=== PATIENT | male | born 1980 | race American Indian/Alaskan Native ===

== ENCOUNTER 2023-10-30 08:51 | Observation (INO) | payer OTHER ==
[~2023-10-30] VITALS: Ht 177.8 cm; Wt 92.0 kg
[2023-10-30] VITALS (9 sets, daily range): BP systolic 133–201; BP diastolic 82–126
[~2023-10-30 08:51] MED LIST: IBUPROFEN600 MG PO
[2023-10-30 09:23] LABS: BASOPHILS 0.5 % (0-2); EOSINOPHILS 0.8 % (0-6); HEMATOCRIT 43.9 % (35.0-50.0); HEMOGLOBIN 14.5 g/dL (12.0-18.0); LYMPHOCYTES 15.4 % (24-44); MCH 26.4 (27-36); MCHC 33.1 g/dl (30-36); MCV 79.6 fl (81-99); MONOCYTES 7.4 % (0-12); NEUTROPHILS 75.9 % (39-80); PLATELET COUNT 263 K/uL (140-440); RBC 5.52 M/ul (4.3-5.7); RDW 14.3 (10.5-15.0)
[2023-10-30] MEDS ORDERED: LISINOPRIL5 MG PO (09:42)
[2023-10-30] MEDS ORDERED: OMEPRAZOLE20 MG PO (09:43)
[2023-10-30] MEDS ORDERED: HYDROCHLOROTH12.5 M1 PO (09:43)
[2023-10-30 09:50] LABS: ALBUMIN 3.5 g/dL (3.4-5.0); ALBUMIN/GLOBULIN RATIO 0.88 (1.1-2.4); ANION GAP 13.5 (7-21); BILIRUBIN, TOTAL 0.5 ng/dL (0.2-1.0); BUN/CREATININE RATIO 11.21 (6.0-28.6); CALCIUM 8.3 mg/dL (8.5-10.1); CREATININE, SERUM 1.07 mg/dL (0.70-1.30); MAGNESIUM 2.2 mg/dL (1.8-2.4); POTASSIUM 3.5 mmol/L (3.5-5.1); PROTEIN, TOTAL 7.5 g/dL (6.4-8.2)
[2023-10-30] MEDS ORDERED: hydrALAZINE HCL 20 MG/ML VIAL IV ONE (10:00)
[2023-10-30] MEDS ORDERED: CLOPIDOGREL BISULFATE 75 MG TAB PO ONE (10:30)
[2023-10-30] MEDS ORDERED: ASPIRIN 81 MG CHEW PO ONE (10:30)
[2023-10-30] MEDS ORDERED: PHARMACY RENAL DOSE ADJUSTMENT 1 DOSE MISC PO SCH (12:00)
[2023-10-30] MEDS ORDERED: ondansetron HCL 4 MG/2 ML VIAL IV PRN (12:00)
[2023-10-30] MEDS ORDERED: ACETAMINOPHEN 325 MG TAB PO PRN (12:00)
--- NOTE | 2023-10-30 13:03 | NUR ---
PT ARRIVES TO UNIT, VS OBTAINED, NOTED BP ON RUE 196/111, MAP 131, PULSE 67. BP RE-TAKEN ON LUE: 201/120, MAP 141, PULSE 57. PT DENIES CHEST PAIN, DIZINESS, OR FAINTNESS. DR. LEVIN NOTIFIED.
--- NOTE | 2023-10-30 14:00 | NUR ---
VISITED DURING SPIRITUAL CARE ROUNDS. PT EXHIBITED STRONG RESIELENCY RESOURCES; DENIED IMMEDIATE NEEDS. I PROVIDED SUPPORTIVE PRESENCE, LISTENED EMPATHETICALLY, PROVIDED PRAYER. PT AND COMPANIONS EXPRESSED GRATITUDE.
--- NOTE | 2023-10-30 14:17 | NUR ---
PT IN ROOM, ECHOCARDIOGRAM PROCEDURE IN PROGRESS.
--- NOTE | 2023-10-30 15:13 | NUR ---
PT LEAVES UNIT WITH HOT PACKER TO IMAGING DEPARTMENT VIA WHEELCHAIR.
[2023-10-30] MEDS ORDERED: ADVIL200 MG PO (17:27)
--- NOTE | 2023-10-30 17:28 | NUR ---
medications reconciled
[2023-10-30] MEDS ORDERED: LABETALOL HCL 20 MG/4 ML VIAL IV ONE (17:30)
--- NOTE | 2023-10-30 19:45 | NUR ---
bp 191/[address] santos notified verbally. Goal is to reduce BP by 25%, SBP 180's - 210/220, call if above
[2023-10-30] MEDS ORDERED: PANTOPRAZOLE SODIUM 40 MG TABEC PO ONE (20:15)
--- NOTE | 2023-10-30 20:15 | NUR ---
pt ambulating in room, alert and oriented x4, neuro wnl, strong hand plan rep. no c/o CP, residual R sided ataxia LE, none noted in arms. Cooperative with vitals and assessments. clear lungs, tele#[address], SVR, no sob with exertion, aware of VS every 2 hours and neuro every 4H. SL RFA patent. c/o upset stomach, scheduled Protonix given.
[2023-10-30] MEDS ORDERED: MELATONIN 3 MG TAB PO PRN (21:00)
--- NOTE | 2023-10-30 21:24 | NUR ---
sitting up in bed visiting with family. bp 180/122, denies c/o CP or SOB with exertion. voided light tea colored urine. tele#[address] SB to SVR
[2023-10-30] MEDS ORDERED: LABETALOL HCL 100 MG/20 ML MDV IV PRN (21:45)
--- NOTE | 2023-10-30 22:02 | NUR ---
dr santos called this rn about 10-15 minutes ago r/t pts bp and new med orders. bp rechecked at this time again 193/122. pt was ambulating in room, visiting with family, denies c/o htn s/sx. medicated with labelatol 10mg iv. med education of s/sx to observe for given verbally to pt, stated understanding
--- NOTE | 2023-10-30 23:14 | EKG ---
[facility] [address] [place] [address] Signed Sinus bradycardia with sinus arrhythmia Otherwise normal ECG No previous ECGs available Confirmed by Flaquita Levin MD () on 10/30/2023 11:14:49 PM Electronically Signed By: FLAQUITA LEVIN MD 10/30/23 2314 PATIENT NAME: AN COKER Electrocardiogram DATE OF : 78 PHYSICIAN: FLAQUITA LEVIN MD REPORT #: [id number] REPORT IS CONFIDENTIAL AND NOT TO BE RELEASED WITHOUT AUTHORIZATION
--- NOTE | 2023-10-30 23:20 | NUR ---
AWAKENS EASILY, C/O IMPROVING NUMBNESS R SIDED, NO C/O S/SX HIGH/LOW BP. BP 133/82, TELE#[address] SVR, DENIES CP. IN BED, TURNS AND REPOSITIONS SELF. NEURO CHECKS DONE STRONG APPLICATIONS SYSTEM ANALYST ALL EXTREMITIES, CLEAR SPEECH, MOVES ALL EXTREMITIES WELL.
[2023-10-31] VITALS (10 sets, daily range): BP systolic 128–172; BP diastolic 78–113
--- NOTE | 2023-10-31 01:21 | NUR ---
DR LEVIN NOTIFIED OF BP READINGS AFTER LABELATOL, NEW ORDER FOR NS IVF AT 125 TO KEEP PERFUSION UP HIS BPS ARE TRENDING DOWN
[2023-10-31] MEDS ORDERED: SODIUM CHLORIDE 0.9% 1,000 ML IV SCH (01:30)
--- NOTE | 2023-10-31 01:31 | NUR ---
ivf ns 125 started at this ti8me as per new orders. IVF med teaching done, stated understanding, sangita CP or SOB
[2023-10-31 05:47] LABS: BASOPHILS 0.6 % (0-2); EOSINOPHILS 1.6 % (0-6); HEMATOCRIT 41.6 % (35.0-50.0); HEMOGLOBIN 13.8 g/dL (12.0-18.0); LYMPHOCYTES 25.1 % (24-44); MCH 26.6 (27-36); MCHC 33.2 g/dl (30-36); MCV 80.1 fl (81-99); MONOCYTES 9.2 % (0-12); NEUTROPHILS 63.5 % (39-80); PLATELET COUNT 216 K/uL (140-440); RDW 14.3 (10.5-15.0)
--- NOTE | 2023-10-31 05:57 | NUR ---
AWAKENS EASILY, STAED RESOLVING NUMBNESS AND TINGLING R FACIAL TO HANDS, LIGHT NUMBNESS R LE BUT MUCH IMPROVED, ABLE TO TOUCH NOSE W FINGER W/O PROBLEMS. CLEAR SPEECH. IVF INFUSING. TELE#[address], SBRADY TO SR RO SVR TO SV EHSAN, IRREGULAR RATE. TURNS AND REPOSITIONS SLEF, TEACHING R/T HTN AND MEDS GIVEN, STATED UNDERSTANDING. CONTINUE WITH VITALS Q2, NEURO CHECKS EVERY 4H
[2023-10-31 06:02] LABS: ALBUMIN 3.3 g/dL (3.4-5.0); ANION GAP 10.3 (7-21); BUN/CREATININE RATIO 12.5 (6.0-28.6); CALCIUM 8.1 mg/dL (8.5-10.1); CHOLESTEROL/HDL RATIO 5.1; CREATININE, SERUM 1.04 mg/dL (0.70-1.30); MAGNESIUM 2.1 mg/dL (1.8-2.4); POTASSIUM 3.3 mmol/L (3.5-5.1); PROTEIN, TOTAL 6.6 g/dL (6.4-8.2)
--- NOTE | 2023-10-31 06:50 | NUR ---
Pt showering, at bedside
--- NOTE | 2023-10-31 07:10 | NUR ---
REPORT RECEIVED FROM ETHYLENE PLANT OPERATOR RN LAYA. PATIENT IS SITTING UPRIGHT ON THE COUCH WITH A VISITOR SITTING IN THE CHAIR. PATIENT STATED NO NEEDS AT THIS TIME. CALL LIGHT AND PERSONAL BELONGINGS ARE WITHIN REACH.
[2023-10-31] MEDS ORDERED: POTASSIUM CHLORIDE 10 MEQ TABCR PO ONE (08:30)
--- NOTE | 2023-10-31 08:51 | NUR ---
Patient appears to be in a good mood. He had a visitor in the room during this time. No request at this time. Board has been updated and call light has been placed within patient reach.
[2023-10-31] MEDS ORDERED: lisinopriL 5 MG TAB PO SCH (09:00)
--- NOTE | 2023-10-31 10:23 | NUR ---
FULL ASSESSMENT COMPLETE AND DOCUMENTED IN THE CHART. PATIENT IS ALERT AND ORIENTED TIMES FOUR AND WITH NO COMPLAINTS OF PAIN AT THIS TIME. STRENGTH IS NORMAL IN THE UPPER AND LOWER EXTREMITIES BILATERALLY. SENSATION INTACT. PATIENT WITH NUMBNESS AND TINGLING NOTED IN THE RIGHT SIDE OF FACE, RIGHT ARM, AND RIGHT LEG. PATIENT ABLE TO AMBULATE IN THE HALLWAY WITH SBA AND LINE AND TUBE MANAGEMENT. PATIENT IS INDEPENDENT IN THE ROOM. CARDIAC WITH IRREGULAR HEART TONES ON AUSCULTATION. PATIENT IS ON TELEMETRY NUMBER 10 AND IN NORMAL SINUS RHYTHM. HR IS 69. PATIENT RADIAL PULSES ARE STRONG BILATERALLY. BOWEL TONES ARE ACTIVE IN ALL FOUR QUADRANTS. IV SITE DRESSING IS CLEAN, DRY, AND INTACT. IV SITE FLUSHED WITH 1O ML NORMAL SALINE AND IS SALINE LOCKED. PATIENT WITH TWO VISITORS AT THE BEDSIDE. PATIENT STATED NO FURTHER NEEDS AT THIS TIME. CALL LIGHT AND PERSONAL BELONGINGS ARE WITHIN REACH.
--- NOTE | 2023-10-31 10:53 | NUR ---
PATIENT IS SITTING UPRIGHT IN BED WITH TWO VISITORS AT THE BEDSIDE. PATIENT SPEAKING WITH THE DOCTOR AT THIS TIME. CALL LIGHT AND PERSONAL BELONGINGS ARE WITHIN REACH.
--- NOTE | 2023-10-31 11:19 | NUR ---
ATTEMPTED TO VISIT DURING SPIRITUAL CARE ROUNDS. PT ON PHONE. DID NOT DISTURB. PROVIDED PRAYER.
[2023-10-31] MEDS ORDERED: CLOPIDOGREL BISULFATE 75 MG TAB PO ONE (11:45)
[2023-10-31] MEDS ORDERED: ASPIRIN 81 MG CHEW PO ONE (11:45)
--- NOTE | 2023-10-31 11:54 | NUR ---
PLAVIX AND ASPIRIN ADMINISTERED PER THE EMAR. PATIENT WITH NO COMPLAINTS OF PAIN WHEN ASKED. PATIENT IS SITTING UPRIGHT IN THE CHAIR AT THIS TIME. PATIENT STATED NO FURTHER NEEDS AT THIS TIME. CALL LIGHT AND PERSONAL BELONGINGS ARE WITHIN REACH.
[2023-10-31] MEDS ORDERED: ASPIRIN81 MG PO (11:58)
[2023-10-31] MEDS ORDERED: PLAVIX75 MG PO (11:59)
[2023-10-31] MEDS ORDERED: LIPITOR40 MG PO (12:00)
[2023-10-31] MEDS ORDERED: HYDROCHLOROTH12.5 M1 PO (12:04)
[2023-10-31] MEDS ORDERED: LISINOPRIL5 MG PO (12:04)
--- NOTE | 2023-10-31 13:24 | NUR ---
PT REQUESTED VISIT. PROVIDED SUPPORTIVE PRESENCE; FACILITATED COMPLETION OF ADVANCE DIRECTIVE. PT AND FAMILY EXPRESSED GRATITUDE.
--- NOTE | 2023-11-02 08:17 | NUR ---
Notified by Dr. Palomares he would like to order OP therapy for this pt. Reviewed this chart and printed to send. Pt does not have a pap. I called and spoke with pt and he states he has an appt tomorrow. He asks I call Lucas [phone]. I called and she confirmed he has an appt with BERNADETTE Fontenot at [facility] tomorrow. I encourged her and Pavel to request OP therapy orders through [facility]. I will send the chart with the order from Dr. Palomares and explained they must have a Dr. owens to sign orders. They are attempting to switch PCP from [facility] to Dr. Khan. Face sheet, H&P, dc summary, PT/OT notes faxed to [facility].
== END 2023-10-31 13:49 | disposition home or self-care (01) ==
LOC: ED 08:51 → MS 08:53
PROVIDERS: Emergency Medicine; ADMIT Family Medicine; ATTEND Family Medicine
DX: I63.9 Cerebral infarction, unspecified (principal); I16.0 Hypertensive urgency; F17.200 Nicotine dependence, unspecified, uncomplicated; R73.03 Prediabetes; E87.6 Hypokalemia; Z79.899 Other long term (current) drug therapy
CPT/HCPCS: 36415; 70450; 70496; 70498; 70551; 80053; 80061; 83036; 83735; 84100; 84484; 85025; 93005; 93010; 93306; 96374; 96375; 96376; 97161; 97166; 99285-25; A9270; G0378; J0360; J7030; Q9967

== ENCOUNTER 2024-04-25 08:05 | Day surgery (SDC) | payer OTHER ==
[2024-04-17 08:46] VITALS: BP 160/97
[~2024-04-25] VITALS: Ht 177.8 cm; Wt 90.0 kg
[~2024-04-25 08:05] MED LIST changes: +ADVIL200 MG PO; +ASPIRIN81 MG PO; +FUROSEMIDE40 MG PO; +HYDROCHLOROTH12.5 M1 PO; +IBLOOD GLUCOSE TEST STRIP 1 EA TEST VI PRN; +KLOR-CON M2020 MEQ PO; +LACTATED RINGER'S 1,000 ML IV SCH; +LIDOCAINE HCL 1% 5 ML SDV INJ ONE; +LIPITOR40 MG PO; +LISINOPRIL5 MG PO; +MIDAZOLAM HCL 5 MG/5 ML VIAL IV PRN; +NORVASC10 MG PO; +OMEPRAZOLE20 MG PO; +PLAVIX75 MG PO; +PROCTOSOL-HC28.35 GM TOP; +VITAMIN D350 MCG PO; +fentaNYL citrate 100 MCG/2 ML VIAL IV PRN
[2024-04-25 08:16] VITALS: BP 145/88
[2024-04-25] MEDS ORDERED: propofoL 200 MG/20 ML VIAL ONE (10:33)
[2024-04-25] MEDS ORDERED: LIDOCAINE HCL 2% 5 ML SDV ONE (10:33)
[2024-04-25] MEDS ORDERED: fentaNYL citrate 100 MCG/2 ML VIAL ONE (10:45)
[2024-04-25 11:34] VITALS: BP 145/96
--- NOTE | 2024-04-25 12:26 | OR ---
[facility] [address] [place], [place] [address] Signed DATE OF OPERATION: 04/25/2024 SURGEON: Kaia Brady MD PREOPERATIVE DIAGNOSIS: 1. Blood with bowel movements every other day. 2. Aspirin following hypertensive transient ischemic attack. POSTOPERATIVE DIAGNOSIS: Moderate internal and external hemorrhoids. PROCEDURE: Colonoscopy without biopsy. ESTIMATED BLOOD LOSS: None. 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 He says generally every other morning when he has his bowel movement he sees some blood. Later in the day he does not seem to have any blood associated with bowel movements. He said there is no pain. He has a sensation of fullness in the anal canal. He also had a hypertensive TIA in October 2023. He has been on aspirin since that time. He also uses some ibuprofen for aches and pains. He went through a cardiac workup which was negative. Apparently, he even went through a stress test which was negative. He goes to his sap business objects developer about once a year. He said he just saw him in January of this year. He tells me there is no family history of colon cancer or polyps or inflammatory bowel disease. In the office, I gave him a pamphlet on colonoscopy. We had reviewed the nature of the test. There is risk including, but not limited to gas bloating, crampy abdominal pain, bleeding, perforation requiring surgery, and missed diagnosis. We also reviewed the written instructions for the bowel prep line by line. In addition, he has obstructive sleep apnea along with a very full face and a full face taylor. Consequently, we asked for monitored anesthesia care with propofol infusion for his safety and to maintain normal blood pressure throughout the procedure. He had expressed understanding and wished to proceed. PROCEDURE IN DETAIL: Pavel was taken into our endoscopy suite and placed in the left lateral decubitus position. He was given monitored anesthesia care with propofol infusion per our nurse regional education manager. A digital rectal exam was performed. He does have circumferential Electronically Signed By: KAIA BRADY MD 04/25/24 1226 PATIENT NAME: PAVEL COKER OPERATIVE REPORT DATE OF : 78 REPORT #: [id number] PHYSICIAN: KAIA BRADY MD PCP: GENET BRADY DO REPORT IS CONFIDENTIAL AND NOT TO BE RELEASED WITHOUT AUTHORIZATION [facility] [address] [place], [place] [address] Signed moderate-sized external hemorrhoids. A good sphincter tone. There were no masses. With gentle traction, I was able to pull the hemorrhoids out, on the one side they were quite beefy and I am sure this was the area that bleeds intermittently particularly with the aspirin on board. The adult colonoscope was introduced, advanced all the way around into the cecum under direct visualization of camera without difficulty. His prep was quite excellent. We could easily see the appendiceal orifice and ileocecal valve. The scope was then slowly withdrawn. We found no pathology throughout the entire colon or rectum. Upon retroflexion of scope he does have moderate internal hemorrhoid columns as well. After this, the gas was suctioned out. The colonoscope removed. Pavel tolerated the procedure quite well. RECOMMENDATIONS: Pavel can follow up in 10 years for repeat screening colonoscopy. We will give him a [employer] brochure on hemorrhoids and I have written down Benefiber and Balneol lotion that he can purchase and use for his hemorrhoids. Kaia Brady MD ALB/MODL /[id number] cc: MD Dr. Bill Shukla Dr. Media Assistant Copies: KAIA BRADY MD ~ Electronically Signed By: KAIA BRADY MD 04/25/24 1226 PATIENT NAME: PAVEL COKER OPERATIVE REPORT DATE OF : 78 REPORT #: [id number] PHYSICIAN: KAIA BRADY MD PCP: GENET BRADY DO REPORT IS CONFIDENTIAL AND NOT TO BE RELEASED WITHOUT AUTHORIZATION
--- NOTE | 2024-04-25 14:09 | NUR ---
04/25/24 1409 Ariana,Jeannine 1108 PT ARRIVED TO PACU ON LEFT SIDE AND ASLEEP, PT WAKES SUDDENLY AND SITS RIGHT UP IN BED AND LOOKING AROUND ROOM. RADIOLOGY RECEPTIONIST, REVENUE SPECIALIST, AND THIS RN TRYING TO REORIENT PT TO PACU, PT ENCOURAGED TO REST. PT ASKING FOR THE SIDE RAIL TO BE DOWN. RN CONTINUES TO REASSURE PT AND RN STARTS TO CONNENT MONITORS SLOWLY. PT LAYS BACK DOWN IN BED, PT ENCOUARGED TO PASS GAS. O2 REMOVED. 1120 PT SITTING UP IN BED AND ASKED WHERE IS HE, PT REORIENTED TO PACU AND ASKED WHY HE IS BLEEDING. 1125 MD AT BEDSIDE TALKING TO PT, HEMORRHOID INFORMATION GIVEN AND ALL QUESTIONS ASWERED. MD REPORTS HE CAN COME TO FOLLOW UP APPOINTMENT TO DISCUSSE PLAN OF CARE OF HEMORRHOIDS. 1135 PT SIPPING WATER AND DENIES CONCERNS, DC INSTRUCTIONS GIVEN. 1145 PT DRESSED HIMSELF AND IV REMOVED. PT DC VIA WC WITH PAPERWORK TO HIS .
== END 2024-04-25 11:43 | disposition home or self-care (01) ==
LOC: DS 08:05
PROVIDERS: ATTEND Colon & Rectal Surgery
PROC: 0DJD8ZZ Inspection of Lower Intestinal Tract, Via Natural or Artificial Opening Endoscopic (ICD-10-PCS; principal; 2024-04-25 09:30)
DX: K64.8 Other hemorrhoids (principal); K64.4 Residual hemorrhoidal skin tags; I10 Essential (primary) hypertension; E78.5 Hyperlipidemia, unspecified; K21.9 Gastro-esophageal reflux disease without esophagitis; G45.9 Transient cerebral ischemic attack, unspecified; G47.33 Obstructive sleep apnea (adult) (pediatric); Z79.82 Long term (current) use of aspirin; Z79.899 Other long term (current) drug therapy
CPT/HCPCS: 00811; J2003; J2704; J3010; J7121